=== PATIENT | female | born 1930 | race Caucasian/White ===

== ENCOUNTER 2017-12-23 07:42 | Emergency (ER) | payer MEDICARE, OTHER ==
[~2017-12-23] VITALS: Ht 157.5 cm; Wt 54.4 kg
[2017-12-23] MEDS ORDERED: ASPIR-TRIN325 MG PO (07:58)
[2017-12-23] MEDS ORDERED: THYROID60 MG PO (07:59)
[2017-12-23] MEDS ORDERED: MACROBID 100 M100 MG PO (13:16)
[2017-12-23] MEDS ORDERED: CARDIZEM CD120 MG PO (13:16)
--- NOTE | 2017-12-23 15:50 | EKG ---
[facility] [address] [facility] [place] [address] Signed Sinus rhythm with sinus arrhythmia with occasional premature ventricular complexes Left anterior fascicular block Nonspecific T wave abnormality Abnormal ECG When compared with ECG of 23-DEC-2017 07:50, (Unconfirmed) Sinus rhythm has replaced Atrial fibrillation Vent. rate has decreased BY 53 BPM Confirmed by ELLEN TONEY MD ([id number]) on 12/23/2017 3:50:26 PM Electronically Signed By: ELLEN TONEY MD 12/23/17 1550 PATIENT NAME: HERMILA HILLIARD Electrocardiogram DATE OF : [birth year] PHYSICIAN: ELLEN TONEY MD REPORT #: [id number] REPORT IS CONFIDENTIAL AND NOT TO BE RELEASED WITHOUT AUTHORIZATION
--- NOTE | 2017-12-23 15:50 | EKG ---
[facility] [address] [facility] [place], [place] [address] Signed Atrial fibrillation with rapid ventricular response Left axis deviation Nonspecific ST and T wave abnormality Abnormal ECG No previous ECGs available Confirmed by ELLEN TONEY MD ([id number] on 12/23/2017 3:50:11 PM Electronically Signed By: ELLEN TONEY MD 12/23/17 1550 PATIENT NAME: HERMILA HILLIARD Electrocardiogram DATE OF : [birth year] PHYSICIAN: ELLEN TONEY MD REPORT #: [id number] REPORT IS CONFIDENTIAL AND NOT TO BE RELEASED WITHOUT AUTHORIZATION
[2018-01-14] MEDS ORDERED: LEVOXYL25 MCG PO (08:02)
[2018-01-15] MEDS ORDERED: DILTIAZEM 24HR240 M3 PO (10:43)
[2018-01-15] MEDS ORDERED: COD LIVER OIL1 EAC1 PO (11:14)
[2018-01-15] MEDS ORDERED: VITAMIN B-121000 MCG PO (11:14)
[2018-01-15] MEDS ORDERED: MULTI VITAMIN1 EACH PO (11:14)
[2018-01-15] MEDS ORDERED: CALCIUM500 MG PO (11:14)
== END 2017-12-23 13:55 | disposition home or self-care (01) ==
LOC: ED 07:42
DX: I48.91 Unspecified atrial fibrillation (principal); R55 Syncope and collapse; N39.0 Urinary tract infection, site not specified; Z88.0 Allergy status to penicillin; Z88.2 Allergy status to sulfonamides; Z88.5 Allergy status to narcotic agent; Z79.82 Long term (current) use of aspirin; Z79.899 Other long term (current) drug therapy
CPT/HCPCS: 70450; 71045; 80053; 81001; 84484; 85025; 87088; 93005; 93010; 96374; 96376; 99284